=== PATIENT | female | born 1990 | race African-American/Black ===

== ENCOUNTER 2018-01-09 11:02 | Emergency (ER) | payer OTHER ==
[2018-01-09] MEDS ORDERED: ONDANSETRON ODT 4 MG TABLET TL STA (12:01)
[2018-01-09 12:39] LABS: GLUCOSE, URINE (UA) NEGATIVE (NEGATIVE); KETONES,URINE (UA) >=80 mg/dL (NEGATIVE); LEUKOCYTE ESTERASE, URINE NEGATIVE (NEGATIVE); NITRITE,URINE NEGATIVE (NEGATIVE); OCCULT BLOOD,URINE MODERATE (NEGATIVE); PROTEIN,URINE 30 mg/dL (NEGATIVE); UROBILINOGEN,URINE 1 (NORMAL) E.U./dL (NORMAL)
[2018-01-09 12:44] LABS: BILIRUBIN,URINE NEGATIVE (NEGATIVE); CLARITY,URINE CLOUDY (CLEAR); ICTOTEST,URINE NEGATIVE
[2018-01-09 12:49] LABS: BACTERIA,URINE Rare /HPF (None Seen); RBC,URINE 0-5 /HPF (0-5); SQUAMOUS EPITHELIAL CELL,UR RARE Squamous (<= Few)
[2018-01-09 12:50] LABS: CASTS, URINE 26-50 Hyaline Casts /LPF; CRYSTALS,URINE 0-2 Calcium Oxalate /LPF
[2018-01-09 13:33] LABS: HCG UR QUAL NEGATIVE
--- NOTE | 2018-01-09 13:43 | ED Physician Documentation ---
PD HPI NVD - Stated complaint Stated Complaint: NAUSEA - Chief complaint Chief Complaint: Abd Pain - History obtained from History obtained from: Patient - History of Present Illness Timing - onset: How many weeks ago (11/18) Timing - details: Waxing and waning Similar symptoms before: Has not had sx before - Additonal information Additional information: The patient is a 27-year-old female who complains of nausea for the past week and a half. She denies vomiting, diarrhea, fever, abdominal pain, or dysuria. She is currently on her menstrual period. She complains of constipation, stating it has been 6 or 7 days since her last bowel movement. Past medical history is significant for gastric sleeve placement in October 2017. Review of Systems Constitutional: denies: Fever Nose: denies: Congestion Throat: denies: Sore throat Cardiac: denies: Chest pain / pressure Respiratory: denies: Dyspnea, Cough GI: reports: Nausea, Constipation. denies: Abdominal Pain, Vomiting : reports: LMP (currently). 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 : None HEENT: None Psych: None Musculoskeletal: None Derm: None - Past Surgical History Past Surgical History: Yes General: Cholecystectomy - Present Medications Home Medications: Ambulatory Orders Medication Instructions Recorded Confirmed Pantoprazole Sodium [Protonix] 0 01/09/18 Polyethylene Glycol 3350 [Miralax] 17 gm PO DAILY PRN #1 bottle 01/09/18 Promethazine [Phenergan] 25 - 50 mg PO Q6H PRN #10 tab 01/09/18 - Allergies Allergies/Adverse Reactions: Allergies Allergy/AdvReac Type Severity Reaction Status Date / Time No Known Drug Allergies Allergy Verified 01/09/18 11:13 - Social History Does the pt smoke?: No Smoking Status: Never smoker Does the pt drink ETOH?: No Does the pt have substance abuse?: No - Immunizations Immunizations are current?: Yes PD ED PE NORMAL - Vitals Vital signs reviewed: Yes (normal) - General General: Alert and oriented X 3, Well developed/nourished, Other (overweight) - HEENT HEENT: Atraumatic, EOMI, Moist mucous membranes, Pharynx benign - Neck Neck: Supple, no meningeal sign, No adenopathy, No JVD - Cardiac Cardiac: RRR, No murmur - Respiratory Respiratory: No respiratory distress, Clear bilaterally - Abdomen Abdomen: Normal bowel sounds, Soft, Non tender - Back Back: No CVA TTP - Derm Derm: No rash - Extremities Extremities: No edema, No calf tenderness / cord - Neuro Neuro: Alert and oriented X 3, No motor deficit, No sensory deficit, Normal speech Results - Vitals Vitals: Oxygen O2 Source Room air - Labs Labs: Laboratory Tests 01/09/18 01/09/18 11:35 11:35 Urine Color DARK YELLOW Urine Clarity CLOUDY Urine pH 6.0 Ur Specific [place] >=1.030 H >=1.030 H Urine Protein 30 H Urine Glucose (UA) NEGATIVE Urine Ketones >=80 H Urine Occult Blood MODERATE H Urine Nitrite NEGATIVE Urine Bilirubin NEGATIVE Urine Urobilinogen 1 (NORMAL) Ur Leukocyte Esterase NEGATIVE Urine RBC 0-5 Urine WBC 0-3 Ur Squamous Epith Cells RARE Squamous Urine Crystals 0-2 Calcium Oxalate Urine Bacteria Rare Urine Casts 26-50 Hyaline Casts Ur Microscopic Review INDICATED Urine Culture Comments NOT INDICATED Urine HCG, Qual NEGATIVE PD MEDICAL DECISION MAKING - ED course Complexity details: reviewed results, re-evaluated patient, considered differential, d/w patient ED course: The patient's presentation is significant for nausea and constipation. She does not appear dehydrated, and her abdominal exam is benign. Urinalysis reveals concentrated urine without evidence of urinary infection. test is negative. Treatment in the emergency department included administration of ondansetron 4 mg sublingually. She demonstrated the ability to drink fluids readily without symptoms. I discussed with her dietary issues associated with constipation. She is being discharged with prescription for MiraLAX and for Phenergan. I discussed with her outpatient follow-up, as well as potentially worrisome signs or symptoms that should prompt reevaluation in the emergency department. Departure - Departure Disposition: 01 Home, Self Care Clinical Impression: Nausea Constipation Qualifiers: Constipation type: unspecified constipation type Qualified Code(s): K59.00 - Constipation, unspecified Instructions: ED Constipation Follow-Up: [facility] [Provider Group] Prescriptions: Polyethylene Glycol 3350 [Miralax] 17 gm PO DAILY PRN #1 bottle PRN Reason: Constipation Promethazine [Phenergan] 25 - 50 mg PO Q6H PRN #10 tab PRN Reason: Nausea / Vomiting Comments: Drink plenty of fluids, including fruit juices. You can use MiraLAX as prescribed if needed for constipation. You can use Phenergan as prescribed if needed for nausea. Follow up with your primary physician within 2 weeks. Call to schedule appointment. Return to the emergency department if you develop increasing abdominal pain, persistent vomiting, or otherwise worsening symptoms. Discharge Date/Time: 01/09/18 13:58
[2018-01-09 13:58] VITALS: BP 147/93
== END 2018-01-09 13:58 | disposition home or self-care (01) ==
LOC: ED 11:02
DX: R11.0 Nausea (principal); K59.00 Constipation, unspecified
CPT/HCPCS: 81001; 81025; 99283; Q0162; 81003; 87086

== ENCOUNTER 2018-01-16 09:42 | Emergency (ER) | payer OTHER ==
--- NOTE | 2018-01-16 11:01 | ED Physician Documentation ---
History of Present Illness - Stated complaint Stated Complaint: FEMALE - Chief complaint Chief Complaint: General - Additonal information Additional information: hx from pt 27 f LMP 01/06 s/p sleeve gastric bypass in [place] in Dec states no BM for 3-4 weeks despite MOM and enemas feels nauseated some LUQ discomfort Review of Systems Constitutional: denies: Fever, Chills Cardiac: denies: Chest pain / pressure Respiratory: denies: Dyspnea, Cough GI: reports: Nausea, Constipation. 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 : None HEENT: None Psych: None Musculoskeletal: None Derm: None - Past Surgical History Past Surgical History: Yes General: Cholecystectomy - Present Medications Home Medications: Ambulatory Orders Medication Instructions Recorded Confirmed Pantoprazole Sodium [Protonix] 0 01/09/18 Polyethylene Glycol 3350 [Miralax] 17 gm PO DAILY PRN #1 bottle 01/09/18 Promethazine [Phenergan] 25 - 50 mg PO Q6H PRN #10 tab 01/09/18 Peg 3350/Na Sulf,Bicarb,Cl/KCl 4,000 ml PO ONCE PRN #1 bottle 01/16/18 [Golytely] - Allergies Allergies/Adverse Reactions: Allergies Allergy/AdvReac Type Severity Reaction Status Date / Time No Known Drug Allergies Allergy Verified 01/16/18 10:08 - Social History Does the pt smoke?: No Smoking Status: Never smoker Does the pt drink ETOH?: No Does the pt have substance abuse?: No - Immunizations Immunizations are current?: Yes Results - Vitals Vitals: Vital Signs - 24 hr 01/16/18 01/16/18 10:04 14:02 Temperature 36.2 C L Heart Rate 86 69 Respiratory 18 16 Rate Blood Pressure 128/99 H 120/63 O2 Saturation 100 100 Oxygen O2 Source Room air - Labs Labs: Laboratory Tests 01/16/18 01/16/18 01/16/18 11:00 13:01 13:01 WBC 3.8 L RBC 4.10 L Hgb 10.1 L Hct 31.8 L MCV 77.6 L MCH 24.7 L MCHC 31.9 L RDW 21.1 H Plt Count 187 MPV 9.1 Neut # 2.3 Lymph # 1.2 L Pickett # 0.3 Eos # 0.0 Baso # 0.0 Absolute Nucleated RBC 0.00 Nucleated RBC % 0.0 Sodium Potassium Chloride Carbon Dioxide Anion Gap BUN Creatinine Estimated GFR (MDRD) Glucose Calcium Total Bilirubin AST ALT Alkaline Phosphatase Total Protein Albumin Globulin Albumin/Globulin Ratio Lipase Serum HCG, Qual NEGATIVE Urine Color YELLOW Urine Clarity HAZY Urine pH 6.0 Ur Specific [place] >=1.030 H Urine Protein 30 H Urine Glucose (UA) NEGATIVE Urine Ketones >=80 H Urine Occult Blood NEGATIVE Urine Nitrite NEGATIVE Urine Bilirubin NEGATIVE Urine Urobilinogen 0.2 (NORMAL) Ur Leukocyte Esterase NEGATIVE Urine RBC None Seen Urine WBC 6-10 H Ur Squamous Epith Cells MANY Squamous H Urine Bacteria Few Urine Casts 3-5 Hyaline Casts Urine Mucus Marked Strands Ur Microscopic Review INDICATED Urine Culture Comments NOT INDICATED Urine HCG, Qual 01/16/18 13:01 WBC RBC Hgb Hct MCV MCH MCHC RDW Plt Count MPV Neut # Lymph # [place] # Eos # Baso # Absolute Nucleated RBC Nucleated RBC % Sodium 137 Potassium 3.1 L Chloride 101 Carbon Dioxide 21 Anion Gap 15.0 H BUN 6 Creatinine 0.7 Estimated GFR (MDRD) 121 Glucose 81 Calcium 9.0 Total Bilirubin 0.9 AST 20 ALT 12 Alkaline Phosphatase 57 Total Protein 7.5 Albumin 4.0 Globulin 3.5 Albumin/Globulin Ratio 1.1 Lipase 37 Serum HCG, Qual Urine Color Urine Clarity Urine pH Ur Specific [place] Urine Protein Urine Glucose (UA) Urine Ketones Urine Occult Blood Urine Nitrite Urine Bilirubin Urine Urobilinogen Ur Leukocyte Esterase Urine RBC Urine WBC Ur Squamous Epith Cells Urine Bacteria Urine Casts Urine Mucus Ur Microscopic Review Urine Culture Comments Urine HCG, Qual - Rads (name of study) AAS Radiology: See rad report PD MEDICAL DECISION MAKING - ED course ED course: long long ED stay due to pt not completely certian she is not preg, then getting urine sample over to lab then her urine HCG could not be determined as the control was not working so she had to have a blood serum HCG done and then that was neg and then she had the xray which shows no SBO and no sig stool in fact will dc with golytely since the miralax give approx a week ago for similar sx did not help anemia and slightly low K noted - did not give PO K because might cause irritation in gastric pouch Departure - Departure Disposition: 01 Home, Self Care Clinical Impression: Constipation Qualifiers: Constipation type: unspecified constipation type Qualified Code(s): K59.00 - Constipation, unspecified Condition: Good Instructions: ED Constipation, Hypokalemia Dc Follow-Up: [facility] [Provider Group] Prescriptions: Peg 3350/Na Sulf,Bicarb,Cl/KCl [Golytely] 4,000 ml PO ONCE PRN #1 bottle PRN Reason: Constipation Comments: The xray is fine - no bowel obstruction and in fact not that much back up stool. I have prescribed a medication caled Go-lytely which is a laxative You should drink several sips every 15 minutes (no more due to your gastric surgery) until you are pooping clear liquid. At that point you are completely clear out and do not need to drink any more After that please be sure to eat food with plenty of fiber and drink plenty of fluids Please follow up with your PMD at [facility] for follow up - although you are very young, any time there is a significant change in bowel habits it is reasonable to consider a colonoscopy to make sure you don't have colon cancer or some other GI disease Also you are mildly anemic and had a slightly low potassium level and were dehydrated. Please have your PMD at [facility] follow up on those issues as well
[2018-01-16 12:11] LABS: GLUCOSE, URINE (UA) NEGATIVE (NEGATIVE); KETONES,URINE (UA) >=80 mg/dL (NEGATIVE); LEUKOCYTE ESTERASE, URINE NEGATIVE (NEGATIVE); NITRITE,URINE NEGATIVE (NEGATIVE); OCCULT BLOOD,URINE NEGATIVE (NEGATIVE); PROTEIN,URINE 30 mg/dL (NEGATIVE); UROBILINOGEN,URINE 0.2 (NORMAL) E.U./dL (NORMAL)
[2018-01-16 12:20] LABS: CLARITY,URINE HAZY (CLEAR)
[2018-01-16 12:21] LABS: BILIRUBIN,URINE NEGATIVE (NEGATIVE); ICTOTEST,URINE NEGATIVE
[2018-01-16 12:33] LABS: BACTERIA,URINE Few /HPF (None Seen); CASTS, URINE 3-5 Hyaline Casts /LPF; MUCUS,URINE Marked Strands; RBC,URINE None Seen /HPF (0-5); SQUAMOUS EPITHELIAL CELL,UR MANY Squamous (<= Few)
[2018-01-16 13:10] LABS: BASOPHILS % (AUTO) 0.8 %; EOSINOPHILS % (AUTO) 0.7 %; HGB - HEMOGLOBIN 10.1 g/dL (12.0-16.0); LYMPHOCYTES # (AUTO) 1.2 10^3/uL (1.5-3.5); MEAN CORPUSCULAR HEMOGLOBIN 24.7 pg (27.0-31.0); MEAN CORPUSCULAR HGB CONC 31.9 g/dL (32.0-36.0); MEAN CORPUSCULAR VOLUME 77.6 fL (81.0-99.0); MEAN PLATELET VOLUME 9.1 fL (7.9-10.8); MONOCYTES # (AUTO) 0.3 10^3/uL (0.0-1.0); MONOCYTES % (AUTO) 7.9 %; NEUTROPHILS # (AUTO) 2.3 10^3/uL (1.5-6.6); NEUTROPHILS % (AUTO) 59.6 %; PLT - PLATELET COUNT 187 10^3/uL (130-450); RED CELL DISTRIBUTION WIDTH 21.1 % (12.0-15.0); WHITE BLOOD COUNT 3.8 x10^3/uL (4.8-10.8)
[2018-01-16 13:22] LABS: ALBUMIN/GLOBULIN RATIO 1.1 (1.0-2.2); BILIRUBIN,TOTAL 0.9 mg/dL (0.2-1.0); CREATININE 0.7 mg/dL (0.4-1.0); TOTAL PROTEIN 7.5 g/dL (6.7-8.2)
[2018-01-16 13:30] LABS: HCG,QUALITATIVE BLOOD NEGATIVE
[2018-01-16 14:02] VITALS: BP 120/63
--- NOTE | 2018-01-16 14:22 | XRAY Report ---
EXAM: ABDOMEN RADIOGRAPHY EXAM DATE: 01/16/2018 01:57 PM. CLINICAL HISTORY: Post gastric bypass no BM 3 weeks. COMPARISON: None. TECHNIQUE: 2 views. FINDINGS: Lung Bases: Unremarkable. Bowel Gas Pattern: No abnormal stool volume. There is scattered gas in the small bowel and colon. No dilated loops or transition zone. Negative for pneumatosis. Free Air: None. Other: There are surgical clips in the right upper quadrant. IMPRESSION: 1. Normal abdomen series. No abnormal retained stool volume. NAOMI Referring Provider Line: [phone] SITE ID: [id number]
== END 2018-01-16 14:58 | disposition home or self-care (01) ==
LOC: ED 09:42
DX: K59.00 Constipation, unspecified (principal); E86.0 Dehydration; Z98.84 Bariatric surgery status
CPT/HCPCS: 36415; 74019; 80053; 81001; 81003; 81025; 83690; 84703; 85025; 87086; 99283

== ENCOUNTER 2018-02-02 12:00 | Emergency (ER) | payer OTHER ==
[2018-02-02] MEDS ORDERED: DEXAMETHASONE 10 MG/ML VIAL PO STA (12:42)
--- NOTE | 2018-02-02 12:44 | ED Physician Documentation ---
PD HPI URI - Stated complaint Stated Complaint: CHILLS/COUGH - Chief complaint Chief Complaint: Fever - History obtained from History obtained from: Patient, Family - History of Present Illness Timing - onset: How many weeks ago (1) Timing duration: Weeks (1) Timing details: Gradual onset, Still present Associated symptoms: Fever, Chills, Nasal congestion, Rhinorrhea, Dry cough, Other (weakness) Contributing factors: Sick contact Improves by: Rest, Medication Similar symptoms before: Diagnosis (bronchitis) Recently seen: Clinic (today) - Additional information Additional information: 27-year-old female with a history of a gastric sleeve has developed a cough and congestion about 1 week ago. She did not have fever associated with this and she did not have production of sputum. She continues to have the cough and today has developed fever. She felt that last night she would be getting better and today when she was worse she went into see her primary care doctor. They diagnosed with a viral URI and have given her some Tessalon. She felt lightheaded and dizzy on the way out of the building feels worse now and is coming to the emergency department with a fever. Review of Systems Constitutional: reports: Fever, Chills, Myalgias, Fatigue, Weight Loss Eyes: denies: Decreased vision Ears: denies: Ear pain Nose: reports: Rhinorrhea / runny nose, Congestion Throat: denies: Sore throat Cardiac: denies: Chest pain / pressure, Palpitations Respiratory: reports: Cough. 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 : None HEENT: None Psych: None Musculoskeletal: None Derm: None - Past Surgical History Past Surgical History: Yes General: Cholecystectomy - Present Medications Home Medications: Ambulatory Orders Medication Instructions Recorded Confirmed Pantoprazole Sodium [Protonix] 0 01/09/18 Polyethylene Glycol 3350 [Miralax] 17 gm PO DAILY PRN #1 bottle 01/09/18 Promethazine [Phenergan] 25 - 50 mg PO Q6H PRN #10 tab 01/09/18 Peg 3350/Na Sulf,Bicarb,Cl/KCl 4,000 ml PO ONCE PRN #1 bottle 01/16/18 [Golytely] Azithromycin [Zithromax] 250 mg PO DAILY #6 tablet 02/02/18 - Allergies Allergies/Adverse Reactions: Allergies Allergy/AdvReac Type Severity Reaction Status Date / Time No Known Drug Allergies Allergy Verified 02/02/18 12:11 - Social History Does the pt smoke?: No Smoking Status: Never smoker Does the pt drink ETOH?: No Does the pt have substance abuse?: No - Immunizations Immunizations are current?: Yes PD ED PE NORMAL - Vitals Vital signs reviewed: Yes (tachy and hypertensive ) - General General: Alert and oriented X 3, No acute distress, Well developed/nourished - HEENT HEENT: Atraumatic, PERRL, EOMI, Ears normal, Moist mucous membranes, Pharynx benign - Neck Neck: Supple, no meningeal sign, No bony TTP - Cardiac Cardiac: RRR, No murmur - Respiratory Respiratory: No respiratory distress, Other (diminished breath sounds bilaterally ) - Abdomen Abdomen: Soft, Non tender - Back Back: No CVA TTP, No spinal TTP - Derm Derm: Normal color, Warm and dry, No rash - Extremities Extremities: No deformity, No edema - Neuro Neuro: No motor deficit, No sensory deficit Eye Opening: Spontaneous Motor: Obeys Commands Verbal: Oriented GCS Score: 15 - Psych Psych: Normal mood, Normal affect Results - Vitals Vitals: Vital Signs - 24 hr 02/02/18 12:07 Temperature 38.3 C H Heart Rate 107 H Respiratory 20 Rate Blood Pressure 135/83 H O2 Saturation 98 Oxygen O2 Source Room air - Labs Labs: Laboratory Tests 02/02/18 13:21 Influenza A (Rapid) Negative Influenza B (Rapid) Negative Influenza Types A,B Ag - - Rads (name of study) 2 view chest Radiology: Prelim report reviewed (Impression: Left lower lobe densities are suspicious for pneumonia), EMP read indepedently, See rad report PD MEDICAL DECISION MAKING - ED course Complexity details: reviewed results, re-evaluated patient, considered differential, d/w patient, d/w family ED course: 27-year-old female with a cough for the past week has developed fever and has lost her energy today. A chest x-ray done here in the emergency department shows a left lower lobe infiltrate. She is treated for pneumonia with Rocephin IM will place her on some azithromycin and we have given her a dose of dexamethasone. Departure - Departure Disposition: 01 Home, Self Care Clinical Impression: Pneumonia Qualifiers: Pneumonia type: due to unspecified organism Laterality: left Lung location: lower lobe of lung Qualified Code(s): J18.1 - Lobar pneumonia, unspecified organism Condition: Stable Instructions: ED Pneumonia Adult Follow-Up: [facility] [Provider Group] Prescriptions: Azithromycin [Zithromax] 250 mg PO DAILY #6 tablet
--- NOTE | 2018-02-02 13:33 | XRAY Report ---
EXAM: CHEST RADIOGRAPHY EXAM DATE: 02/02/2018 01:08 PM. CLINICAL HISTORY: Cough diminished breath sounds. COMPARISON: 01/16/2018. TECHNIQUE: 2 views. FINDINGS: Lungs/Pleura: Increased opacities in the retrocardiac left lower lobe. Lungs otherwise clear. No pleu ral effusion. No pneumothorax. Normal volumes. Mediastinum: Heart and mediastinal contours are normal. Other: None. IMPRESSION: Left lower lobe opacities are suspicious for pneumonia. [facility] Referring Provider Line: [phone] SITE ID: [id number]
[2018-02-02] MEDS ORDERED: LIDOCAINE 1% 2 ML VIAL SUBQ ONE (14:30)
[2018-02-02] MEDS ORDERED: cefTRIAXone 1 GM VIAL IM STA (14:30)
[2018-02-02 15:19] VITALS: BP 118/64
== END 2018-02-02 15:17 | disposition home or self-care (01) ==
LOC: ED 12:00
DX: J18.1 Lobar pneumonia, unspecified organism (principal)
CPT/HCPCS: 71046; 87275; 87276; 96372; 99283; 99284

== ENCOUNTER 2019-01-18 14:01 | Emergency (ER) | payer OTHER ==
--- NOTE | 2019-01-18 17:43 | ED Physician Documentation ---
History of Present Illness - Stated complaint Stated Complaint: DIARRHEA/CONGESTION - Chief complaint Chief Complaint: General - History obtained from History obtained from: Patient - History of Present Illness Timing: Other (She has been sick for about a week. Started with high fevers and chills and feeling foggy and she has had diarrhea. Then it got worse about 2 days ago, the fevers went away but now she has more frontal sinus pain and cough. The fever is gone but the diarrhea is better. Kids were sick with what sounds like a viral illness last week.) Review of Systems Constitutional: reports: Fever (gone), Chills. denies: Myalgias, Fatigue Nose: reports: Rhinorrhea / runny nose, Congestion, Sinus pressure / pain Throat: reports: Sore throat Respiratory: reports: Cough. 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 : None HEENT: None Psych: None Musculoskeletal: None Derm: None - Past Surgical History Past Surgical History: Yes General: Cholecystectomy - Present Medications Home Medications: Ambulatory Orders Medication Instructions Recorded Confirmed Pantoprazole Sodium [Protonix] 0 01/09/18 Polyethylene Glycol 3350 [Miralax] 17 gm PO DAILY PRN #1 bottle 01/09/18 Promethazine [Phenergan] 25 - 50 mg PO Q6H PRN #10 tab 01/09/18 Peg 3350/Na Sulf,Bicarb,Cl/KCl 4,000 ml PO ONCE PRN #1 bottle 01/16/18 [Golytely] Azithromycin [Zithromax] 250 mg PO DAILY #6 tablet 02/02/18 Albuterol Sulf [Ventolin Hfa 1 - 2 puffs INH Q4HR PRN #1 inhaler 01/18/19 Inhaler] Amoxicillin 500 mg PO TID #30 capsule 01/18/19 guaiFENesin/CODEINE [Robitussin AC] 5 - 10 ml PO Q6H PRN #120 ml 01/18/19 predniSONE [Deltasone] 60 mg PO DAILY 5 Days tablet 01/18/19 - Allergies Allergies/Adverse Reactions: Allergies Allergy/AdvReac Type Severity Reaction Status Date / Time No Known Drug Allergies Allergy Verified 01/18/19 14:48 - Social History Does the pt smoke?: No Smoking Status: Never smoker Does the pt drink ETOH?: No Does the pt have substance abuse?: No - Immunizations Immunizations are current?: Yes PD ED PE NORMAL - Vitals Vital signs reviewed: Yes - General General: Alert and oriented X 3, No acute distress - HEENT HEENT: Ears normal, Other (Tender to both maxillary sinuses, cobblestoning in the posterior oropharynx without swelling or exudates.) - Neck Neck: Supple, no meningeal sign, No bony TTP - Cardiac Cardiac: RRR, No murmur - Respiratory Respiratory: Other (Mild expiratory wheezes without focal findings) - Abdomen Abdomen: Soft, Non tender - Derm Derm: No rash - Extremities Extremities: No edema, No calf tenderness / cord - Neuro Neuro: Alert and oriented X 3, Normal speech Results - Vitals Vitals: Vital Signs - 24 hr 01/18/19 01/18/19 14:43 16:37 Temperature 37.2 C 36.5 C Heart Rate 73 71 Respiratory 16 16 Rate Blood Pressure 141/84 H 127/63 O2 Saturation 100 98 Oxygen O2 Source Room air - Labs Labs: Laboratory Tests 01/18/19 16:41 Influenza A (Rapid) Negative Influenza B (Rapid) Negative Departure - Departure Disposition: 01 Home, Self Care Clinical Impression: Bronchitis Sinusitis Qualifiers: Sinusitis location: maxillary Chronicity: acute Recurrence: non-recurrent Qualified Code(s): J01.00 - Acute maxillary sinusitis, unspecified Condition: Good Record reviewed to determine appropriate education?: Yes Instructions: ED Sinusitis Abx Tx Prescriptions: Albuterol Sulf [Ventolin Hfa Inhaler] 1 - 2 puffs INH Q4HR PRN #1 inhaler PRN Reason: Shortness Of Air/Wheezing Amoxicillin 500 mg PO TID #30 capsule guaiFENesin/CODEINE [Robitussin AC] 5 - 10 ml PO Q6H PRN #120 ml PRN Reason: Cough predniSONE [Deltasone] 60 mg PO DAILY 5 Days tablet Comments: Call your doctor to arrange a follow-up appointment, make the next available appointment. In the interim, return anytime if worse or if new symptoms develop. Forms: Activity restrictions
[2019-01-18 17:49] VITALS: BP 130/83
== END 2019-01-18 17:53 | disposition home or self-care (01) ==
LOC: ED 14:01
DX: J40 Bronchitis, not specified as acute or chronic (principal); J01.00 Acute maxillary sinusitis, unspecified
CPT/HCPCS: 87275; 87276; 99283

== ENCOUNTER 2019-12-22 12:55 | Outpatient (CLI) | payer BC, OTHER ==
--- NOTE | 2019-12-22 17:38 | XRAY Report ---
Reason: LT SHLDR JOINT PAIN Procedure Date: 12/22/2019 Accession Number: [id number] / [id number] Procedure: XRN - Shoulder 3 View LT CPT Code: Final Report FULL RESULT: EXAM: LEFT SHOULDER RADIOGRAPHY EXAM DATE: 12/22/2019 01:08 PM. CLINICAL HISTORY: Left shoulder pain x2 months. No known injury. COMPARISON: None. TECHNIQUE: 3 views. FINDINGS: Bones: No fracture or bone destructive process. Joints: No subluxation. Glenohumeral and acromioclavicular joints are preserved. Soft tissues: No periarticular calcifications. IMPRESSION: 1. Negative. No significant bony or articular abnormality identified. [facility]
== END 2019-12-22 12:56 | disposition home or self-care (01) ==
LOC: DI.N 12:55
PROVIDERS: ATTEND Family Medicine
DX: M25.512 Pain in left shoulder (principal)

== ENCOUNTER 2020-01-04 11:10 | Outpatient (CLI) | payer BC, OTHER | END 2020-01-04 23:59 | disposition home or self-care (01) | LOC: LAB.R 11:10 | PROVIDERS: ATTEND Nurse Practitioner Gerontology | DX: B34.9 Viral infection, unspecified (principal) | CPT/HCPCS: 87275; 87276 ==